=== PATIENT | female | born 1935 | race Hispanic/Latino ===

== ENCOUNTER 2017-12-17 19:51 | Observation (INO) | payer MEDICARE, BC ==
[2017-12-17] MEDS ORDERED: Sodium Chloride 0.9% 500 ML IV STA (20:42)
--- NOTE | 2017-12-17 20:43 | ED PDOC ---
HPI: Chest Pain Time Seen by Provider: 12/17/17 20:18 Chief Complaint (Nursing): Chest Pain Chief Complaint (Provider): Chest pain History Per: Patient History/Exam Limitations: no limitations Onset/Duration Of Symptoms: Days (today) Current Symptoms Are (Timing): Still Present Additional Complaint(s): Chest pain sternal today afternoon. Gone currently. Started after a lot of walking around and site seeing. No dyspnea, weakness, headaches, dizziness, cough, abd pain, nausea, vomit, diarrhea, back pain, leg pain. No numbness, tingles. Took all her meds today. From [place], here for a conference. Past Medical History Reviewed: Nursing Documentation, Vital Signs Vital Signs: Last Vital Signs Temp 98.2 F 12/17/17 19:55 Pulse 64 12/17/17 19:55 Resp 18 12/17/17 19:55 BP 156/78 H 12/17/17 19:55 Pulse Ox 98 12/17/17 19:55 - Medical History PMH: Cardia Arrhythmia (heart block), HTN, Hypercholesterolemia - Surgical History Surgical History: Pacemaker - Family History Family History: States: Unknown Family Hx - Allergies Allergies/Adverse Reactions: Allergies Allergy/AdvReac Type Severity Reaction Status Date / Time No Known Allergies Allergy Verified 12/17/17 19:55 Review of Systems ROS Statement: Except As Marked, All Systems Reviewed And Found Negative Cardiovascular: Positive for: Chest Pain Physical Exam - Reviewed Nursing Documentation Reviewed: Yes Vital Signs Reviewed: Yes - Physical Exam Appears: Positive for: Non-toxic, No Acute Distress Head Exam: Positive for: ATRAUMATIC, NORMAL INSPECTION, NORMOCEPHALIC Skin: Positive for: Normal Color, Warm, DRY Eye Exam: Positive for: EOMI, Normal appearance, PERRL ENT: Positive for: Normal ENT Inspection Neck: Positive for: Normal, Painless ROM Cardiovascular/Chest: Positive for: Regular Rate, Rhythm, Chest Non Tender. Negative for: Edema Respiratory: Positive for: CNT, Normal Breath Sounds Gastrointestinal/Abdominal: Positive for: Normal Exam, Soft. Negative for: Tenderness Back: Positive for: Normal Inspection. Negative for: L CVA Tenderness, R CVA Tenderness Extremity: Positive for: Normal ROM. Negative for: Tenderness, Pedal Edema Neurologic/Psych: Positive for: Alert, Oriented - Laboratory Results Result Diagrams: 12/17/17 21:00 12/17/17 21:00 Interpretation Of Abn Labs: 31 bun - ECG ECG: Positive for: Interpreted By Me, Viewed By Me ECG Rhythm: Positive for: Venticular Paced O2 Sat by Pulse Oximetry: 98 Pulse Ox Interpretation: Normal - Radiology X-Ray: Interpreted by Me, Viewed By Me X-Ray Interpretation: No Acute Disease - Progress ED Course And Treament: 1043: Stable. AAOx3. Spoke with Dr. Cueto. Will admit tele. Will give further orders when pt. reaches floor. Pt. is pain free. Will hold asa as pt. is on elaquis. Disposition - Clinical Impression Clinical Impression: Chest pain - Patient ED Disposition Is Patient to be Admitted: Yes Counseled Patient/Family Regarding: Studies Performed, Diagnosis - Disposition Disposition Time: 22:00 Condition: FAIR - Pt Status Changed To: Hospital Disposition Of: Observation - POA Present On Arrival: None
[2017-12-17 21:21] LABS: INR 1.1; PROTHROMBIN TIME 12.3 Seconds (9.8-13.1)
[2017-12-17 21:22] LABS: ALB/GLOB RATIO 1.1 (1.0-2.1); ALT/SGPT 33 U/L (9-52); AST/SGOT 30 U/L (14-36); BLOOD UREA NITROGEN 31 mg/dl (7-17); CALCIUM 10.1 mg/dL (8.4-10.2); GFR NON-AFRICAN AMERICAN 60
[2017-12-17 21:24] LABS: PARTIAL THROMBOPLASTIN TIME 32.2 Seconds (25.6-37.1)
[2017-12-17 21:25] LABS: BASO # 0.1 K/uL (0.0-0.2); BASO % 1.3 % (0.0-2.0); EOS # 0.2 K/uL (0.0-0.7); HEMOGLOBIN 12.2 g/dL (12.0-16.0); LYMPH # 1.3 K/uL (1.0-4.3); MEAN CELL VOLUME 83.1 fl (81.0-99.0); MEAN CORPUSCULAR HEMOGLOBIN 26.9 pg (27.0-31.0); MEAN CORPUSCULAR HGB CONC 32.4 g/dL (33.0-37.0); MEAN PLATELET VOLUME 9.7 fl (7.2-11.7); MONO # 0.5 K/uL (0.0-0.8); MONO % 8.7 % (0.0-10.0); NEUT # 3.9 K/uL (1.8-7.0); RBC 4.53 Mil/uL (3.80-5.20); RED CELL DISTRIBUTION WIDTH 14.7 % (11.5-14.5)
[2017-12-18 01:01] VITALS: RESP 18
[2017-12-18 08:00] VITALS: TEMP 97.6
--- NOTE | 2017-12-18 08:05 | RAD ---
Date of service: 12/17/2017 HISTORY: chest pain COMPARISON: No prior. FINDINGS: LUNGS: No active pulmonary disease. PLEURA: No significant pleural effusion identified, no pneumothorax apparent. CARDIOVASCULAR: Permanent cardiac pacemaker is identified with the generator noted at the left pectoralis region and 2 leads identified extending into the right heart via left subclavian approach. Frontal technique limits evaluation the cardiac size. No definite pulmonary vascular congestion though borderline cardiomegaly is not completely excluded. Calcific atherosclerotic changes are seen related to the thoracic aorta. OSSEOUS STRUCTURES: No significant abnormalities. VISUALIZED UPPER ABDOMEN: Normal. OTHER FINDINGS: None. IMPRESSION: No acute airspace disease identified bilaterally or pulmonary vascular congestion. Borderline cardiomegaly not excluded. Bipolar pacemaker in situ as described above.
[2017-12-18 08:38] LABS: TROPONIN I 0.015 ng/mL (0.00-0.120)
[2017-12-18 11:51] VITALS: BP 134/67; PULSE 63; O2SAT 98
--- NOTE | 2017-12-18 13:01 | CP.PCM.CON ---
History of Present Illness - History of Present Illness History of Present Illness: 82 Y/O WITH EPISODE OF SUBSTERNAL CHEST DISCOMFORT. NON RADIATING 8/10 AT WORST. RELIEVED WITH BURPING. OCCURRED DURING HER MEAL. FIRST EPISODE EVER. PT DENIES RADIATION OF PAIN, CARDIAC RISK FACTORS DM, HTN, DYSLIPIDEMIA. SHE HAS A HX OF ARRYTHMIA REQUIRING PPM AND ELIQUIS. SHE IS UNAWARE OF WHICH ARRYTHMIA. Past Patient History - Past Medical History & Family History Past Medical History?: Yes - Past Social History Smoking Status: Never Smoked - CARDIAC Hx Cardia Arrhythmia: Yes (heart block) Hx Hypercholesterolemia: Yes Hx Hypertension: Yes Hx Pacemaker: Yes - PULMONARY Hx Respiratory Disorders: No - NEUROLOGICAL Hx Neurological Disorder: No - HEENT Hx HEENT Problems: No - RENAL Hx Chronic Kidney Disease: No - ENDOCRINE/METABOLIC Hx Endocrine Disorders: No - HEMATOLOGICAL/ONCOLOGICAL Hx Blood Disorders: No - INTEGUMENTARY Hx Dermatological Problems: No - MUSCULOSKELETAL/RHEUMATOLOGICAL Hx Musculoskeletal Disorders: No Hx Falls: No - GASTROINTESTINAL Hx Gastrointestinal Disorders: No - GENITOURINARY/GYNECOLOGICAL Hx Genitourinary Disorders: No - PSYCHIATRIC Hx Psychophysiologic Disorder: No Hx Substance Use: No - SURGICAL HISTORY Hx Appendectomy: Yes Hx Orthopedic Surgery: Yes Hx Tonsillectomy: Yes Other/Comment: bilat ankle surgery - ANESTHESIA Hx Anesthesia: Yes Hx Anesthesia Reactions: No Hx Malignant Hyperthermia: No Has any member of the family had a problem w/ anesthesia?: No Meds Home Medications: Home Medication List Medication Instructions Recorded Confirmed Type Apixaban [Eliquis] 2.5 mg PO BID tab 12/18/17 Rx Allergies/Adverse Reactions: Allergies Allergy/AdvReac Type Severity Reaction Status Date / Time No Known Allergies Allergy Verified 12/17/17 19:55 - Medications Medications: Current Medications Apixaban (Eliquis) 2.5 mg PO BID [facility]; Protocol Last Admin: 12/18/17 11:07 Dose: 2.5 mg Results - Vital Signs Recent Vital Signs: Last Vital Signs Temp 97.6 F 12/18/17 11:51 Pulse 63 12/18/17 11:51 Resp 18 12/18/17 11:51 BP 134/67 12/18/17 11:51 Pulse Ox 98 12/18/17 11:51 - Labs Result Diagrams: 12/17/17 21:00 12/17/17 21:00 Labs: Laboratory Results - last 24 hr 10/18/18 10/18/18 10/18/18 21:00 21:00 21:00 WBC 6.0 RBC 4.53 Hgb 12.2 Hct 37.6 MCV 83.1 MCH 26.9 L MCHC 32.4 L RDW 14.7 H Plt Count 236 MPV 9.7 Neut % (Auto) 65.0 Lymph % (Auto) 22.0 [place] % (Auto) 8.7 Eos % (Auto) 3.0 Baso % (Auto) 1.3 Neut # (Auto) 3.9 Lymph # (Auto) 1.3 [place] # (Auto) 0.5 Eos # (Auto) 0.2 Baso # (Auto) 0.1 PT 12.3 INR 1.1 APTT 32.2 Sodium 142 Potassium 3.7 Chloride 109 H Carbon Dioxide 28 Anion Gap 9 L BUN 31 H Creatinine 0.9 Est GFR ( Amer) > 60 Est GFR (Non-Af Amer) 60 Random Glucose 119 H Calcium 10.1 Total Bilirubin 0.3 AST 30 ALT 33 Alkaline Phosphatase 78 Troponin I < 0.0120 Total Protein 7.5 Albumin 4.0 Globulin 3.5 Albumin/Globulin Ratio 1.1 Triglycerides Cholesterol LDL Cholesterol Direct HDL Cholesterol 12/18/17 08:11 WBC RBC Hgb Hct MCV MCH MCHC RDW Plt Count MPV Neut % (Auto) Lymph % (Auto) [place] % (Auto) Eos % (Auto) Baso % (Auto) Neut # (Auto) Lymph # (Auto) [place] # (Auto) Eos # (Auto) Baso # (Auto) PT INR APTT Sodium Potassium Chloride Carbon Dioxide Anion Gap BUN Creatinine Est GFR ( Amer) Est GFR (Non-Af Amer) Random Glucose Calcium Total Bilirubin AST ALT Alkaline Phosphatase Troponin I 0.0150 Total Protein Albumin Globulin Albumin/Globulin Ratio Triglycerides 84 Cholesterol 160 LDL Cholesterol Direct 93 HDL Cholesterol 56 Assessment & Plan (1) Pacemaker Status: Acute (2) Chest pain Status: Acute - Assessment and Plan (Free Text) Plan: EKG SHOWS A SENSE V PACE TROP NEG X 2 PT HAS A INSECTICIDE MIXER IN [place] D/C PT. SHE UNDERSTANDS THAT IF THE CP RETURNS SHE SHOULD RETURN TO ER. 45 MIN
--- NOTE | 2017-12-18 13:41 | HP ---
HISTORY OF PRESENT ILLNESS: Ms. Nguyen is an 82-year-old female who was admitted via the emergency room because of chest pain. She indicated that she recently got to [facility] from [place] for a convention and has been walking around sightseeing for the past 48 hours and developed chest discomfort while eating at a restaurant. She indicates that she thought it was just gas, but her friends and patrons at the restaurant called the ambulance and she was brought to the emergency room. She continues to insist that all she had was gas. She feels better. Denies chest pain, shortness of breath or palpitations. PAST MEDICAL HISTORY: She has a past medical history of cardiac arrhythmias (heart block), for which she had a pacemaker placed. She also has hypertension and hyperlipidemia and problems with her eyes which appear to be glaucoma. FAMILY HISTORY: Noncontributory. SOCIAL HISTORY: She denies smoking or alcohol use. REVIEW OF SYSTEMS: Essentially unremarkable. PHYSICAL EXAMINATION: GENERAL The patient is alert and oriented, appears to be in no apparent distress at present. VITAL SIGNS: Blood pressure on the admission was 156/78 with a pulse of 64, respiratory rate 80. She is afebrile. O2 sat 98% on room air. SKIN: Shows fair turgor. HEENT: Pupils are equal and reactive to light and accommodation. JVP flat. Mouth shows fair hygiene. LUNGS: Clear. HEART: Regular. No murmurs or gallop. There is a pacemaker in place. ABDOMEN: Soft, nontender. No organomegaly. EXTREMITIES: Show no edema or cyanosis. GENITALIA AND RECTAL: Deferred. CENTRAL NERVOUS SYSTEM: Grossly intact. LABORATORY DATA: Reviewed and is unremarkable. Chest x-ray shows no acute cardiopulmonary pathology except for mild cardiomegaly and a pacemaker in place. EKG, pacemaker rhythm. IMPRESSION: Chest pain. One doubts acute coronary syndrome, but the plan will be to obtain cardiac enzymes, obtain repeat EKG and cardiology evaluation. If the patient is cleared by Cardiology following observation, will be discharged back to her hotel. Kaden Cueto MD
--- NOTE | 2017-12-18 17:04 | CARD ---
APPROVED REPORT Date of service: 12/18/2017 EKG Measurement Heart [id number] <Conclusion> Atrial-sensed ventricular-paced rhythm Abnormal ECG
--- NOTE | 2017-12-19 12:04 | CP.PCM.DIS ---
Provider - Provider Date of Admission: 12/17/17 22:45 Attending physician: Kaden Cueto MD Time Spent in preparation of Discharge (in minutes): 35 Diagnosis - Discharge Diagnosis (1) Chest pain Status: Acute (2) Pacemaker Status: Acute Hospital Course - Lab Results Lab Results: Most Recent Lab Values WBC 6.0 K/uL (4.8-10.8) 12/17/17 21:00 RBC 4.53 Mil/uL (3.80-5.20) 12/17/17 21:00 Hgb 12.2 g/dL (12.0-16.0) 12/17/17 21:00 Hct 37.6 % (34.0-47.0) 12/17/17 21:00 MCV 83.1 fl (81.0-99.0) 12/17/17 21:00 MCH 26.9 pg (27.0-31.0) L 12/17/17 21:00 MCHC 32.4 g/dL (33.0-37.0) L 12/17/17 21:00 RDW 14.7 % (11.5-14.5) H 12/17/17 21:00 Plt Count 236 K/uL (130-400) 12/17/17 21:00 MPV 9.7 fl (7.2-11.7) 12/17/17 21:00 Neut % (Auto) 65.0 % (50.0-75.0) 12/17/17 21:00 Lymph % (Auto) 22.0 % (20.0-40.0) 12/17/17 21:00 [place] % (Auto) 8.7 % (0.0-10.0) 12/17/17 21:00 Eos % (Auto) 3.0 % (0.0-4.0) 12/17/17 21:00 Baso % (Auto) 1.3 % (0.0-2.0) 12/17/17 21:00 Neut # (Auto) 3.9 K/uL (1.8-7.0) 12/17/17 21:00 Lymph # (Auto) 1.3 K/uL (1.0-4.3) 12/17/17 21:00 [place] # (Auto) 0.5 K/uL (0.0-0.8) 12/17/17 21:00 Eos # (Auto) 0.2 K/uL (0.0-0.7) 12/17/17 21:00 Baso # (Auto) 0.1 K/uL (0.0-0.2) 12/17/17 21:00 PT 12.3 Seconds (9.8-13.1) 12/17/17 21:00 INR 1.1 12/17/17 21:00 APTT 32.2 Seconds (25.6-37.1) 12/17/17 21:00 Sodium 142 mmol/l (132-148) 12/17/17 21:00 Potassium 3.7 MMOL/L (3.6-5.0) 12/17/17 21:00 Chloride 109 mmol/L (98-107) H 12/17/17 21:00 Carbon Dioxide 28 mmol/L (22-30) 12/17/17 21:00 Anion Gap 9 (10-20) L 12/17/17 21:00 BUN 31 mg/dl (7-17) H 12/17/17 21:00 Creatinine 0.9 mg/dl (0.7-1.2) 12/17/17 21:00 Est GFR ( Amer) > 60 12/17/17 21:00 Est GFR (Non-Af Amer) 60 12/17/17 21:00 Random Glucose 119 mg/dL (65-105) H 12/17/17 21:00 Calcium 10.1 mg/dL (8.4-10.2) 12/17/17 21:00 Total Bilirubin 0.3 mg/dl (0.2-1.3) 12/17/17 21:00 AST 30 U/L (14-36) 12/17/17 21:00 ALT 33 U/L (9-52) 12/17/17 21:00 Alkaline Phosphatase 78 U/L (38-126) 12/17/17 21:00 Troponin I 0.0150 ng/mL (0.00-0.120) 12/18/17 08:11 Total Protein 7.5 G/DL (6.3-8.2) 12/17/17 21:00 Albumin 4.0 g/dL (3.5-5.0) 12/17/17 21:00 Globulin 3.5 gm/dL (2.2-3.9) 12/17/17 21:00 Albumin/Globulin Ratio 1.1 (1.0-2.1) 12/17/17 21:00 Triglycerides 84 mg/DL (0-149) 12/18/17 08:11 Cholesterol 160 mg/dL (0-199) 12/18/17 08:11 LDL Cholesterol Direct 93 mg/dL (0-129) 12/18/17 08:11 HDL Cholesterol 56 MG/DL (30-70) 12/18/17 08:11 - Hospital Course Hospital Course: chest pain free cardiac workup non-revealing Discharge Exam - Head Exam Head Exam: ATRAUMATIC, NORMAL INSPECTION, NORMOCEPHALIC - Eye Exam Eye Exam: EOMI, Normal appearance, PERRL Pupil Exam: NORMAL ACCOMODATION, PERRL - GI/Abdominal Exam GI & Abdominal Exam: Normal Bowel Sounds - Rectal Exam Rectal Exam: NORMAL INSPECTION - Neurological Exam Neurological exam: Alert, CN II-XII Intact, Normal Gait, Oriented x3, Reflexes Normal - Psychiatric Exam Psychiatric exam: Normal Affect, Normal Mood - Skin Skin Exam: Dry, Intact, Normal Color, Warm Discharge Plan - Follow Up Plan Condition: FAIR Disposition: HOME/ ROUTINE Instructions: Chest Pain (DC) Additional Instructions: follow up with pmd and podiatric aide in [place].
== END 2017-12-18 14:46 | disposition home or self-care (01) ==
LOC: H.ER 19:51 → H.ERHOLD 22:45 → H.TEL 12-18 00:49
PROVIDERS: ADMIT Internal Medicine Pulmonary Disease; ATTEND Internal Medicine Pulmonary Disease
DX: R07.89 Other chest pain (principal); E78.00 Pure hypercholesterolemia, unspecified; E78.5 Hyperlipidemia, unspecified; H40.9 Unspecified glaucoma; I10 Essential (primary) hypertension; Z79.01 Long term (current) use of anticoagulants; Z90.49 Acquired absence of other specified parts of digestive tract; Z95.0 Presence of cardiac pacemaker; I45.9 Conduction disorder, unspecified
CPT/HCPCS: 36415; 71045; 80053; 80061; 84484; 85025; 85610; 85730; 93005; 99285; G0378; J7040